=== PATIENT | female | born 1995 | race Caucasian/White ===

== ENCOUNTER 2022-04-17 15:07 | Emergency (ER) | payer OTHER ==
[~2022-04-17] VITALS: Ht 160 cm; Wt 52.2 kg
[2022-04-17 15:16] VITALS: BP 105/65
--- NOTE | 2022-04-17 16:37 | NUR ---
TO ER CHAIR,NO APPARENT CHANGE IN CONDITION
== END 2022-04-17 17:47 | disposition home or self-care (01) ==
LOC: ER 15:28
DX: S50.11XA Contusion of right forearm, initial encounter (principal); G56.21 Lesion of ulnar nerve, right upper limb; F41.9 Anxiety disorder, unspecified; D64.9 Anemia, unspecified; W17.89XA Other fall from one level to another, initial encounter; Y93.89 Activity, other specified; Y92.89 Other specified places as the place of occurrence of the external cause; Y99.8 Other external cause status
CPT/HCPCS: 73090-TC